=== PATIENT | female | born 1995 | race Caucasian/White ===

== ENCOUNTER 2017-06-05 16:04 | Emergency (ER) | payer SELFPAY ==
[2017-06-05 16:15] VITALS: BP 114/67
[2017-06-05] MEDS ORDERED: Ondansetron 4 MG/2 ML SDV IVPUSH ONE (16:43)
[2017-06-05] MEDS ORDERED: Ketorolac 30 MG/ML SDV IVPUSH ONE (16:43)
[2017-06-05] MEDS ORDERED: Sodium Chloride 0.9% 1,000 ML IV ONE (16:43)
[2017-06-05] MEDS ORDERED: Sodium Chloride 0.9% 10 ML Syringe FLUSH PRN (16:43)
--- NOTE | 2017-06-05 18:18 | EDM.PDOC ---
ED HPI GENERAL MEDICAL PROBLEM - General Chief Complaint: Respiratory Problem Stated Complaint: COLD AND SHE FANITED Time Seen by Provider: 06/05/17 16:44 Source of Information: Reports: Patient History Limitations: Reports: No Limitations - History of Present Illness INITIAL COMMENTS - FREE TEXT/NARRATIVE: 21-year-old female presents for evaluation and treatment of cold symptoms. Patient reports that she has been sick with cough and upper respiratory symptoms for the past 5 days. Current symptoms include a productive cough, ear pain and a sore throat. She also reports nasal congestion, headaches, low back pain and abdominal discomfort. Denies any fevers, vomiting or diarrhea. patient reports today she took some Mucinex. She states that when she woke up for nap she went to the kitchen. She began to feel lightheaded and dizzy. She states that she felt nauseous. She went to the bathroom and closes the door where she reports she passed out. However, she reports she was awake for the entire duration of this episode. She states she was down for only a few seconds. She is denying any chest pain or any shortness of breath. No influenza vaccine this season. Patient reports she traveled [place] recently. Lower Back Pain Score (Numeric/FACES): 2 - Related Data Allergies Allergy/AdvReac Type Severity Reaction Status Date / Time No Known Allergies Allergy Verified 06/05/17 16:15 Home Meds: Home Meds Amoxicillin 500 mg PO BID #20 tab 06/05/17 [Rx] Past Medical History - Past Health History Medical/Surgical History: Denies Medical/Surgical History Social & Family History - Tobacco Use Smoking Status *Q: Never Smoker ED ROS GENERAL - Review of Systems Review Of Systems: See Below Constitutional: Denies: Fever HEENT: Reports: Ear Pain, Throat Pain Respiratory: Reports: Cough, Sputum. Denies: Shortness of Breath Cardiovascular: Denies: Chest Pain GI/Abdominal: Reports: Nausea. Denies: Vomiting Neurological: Reports: Dizziness, Headache. Denies: Syncope ED EXAM, GENERAL - Physical Exam Exam: See Below Exam Limited By: No Limitations General Appearance: Alert, WD/WN, No Apparent Distress Eye Exam: Bilateral Eye: Normal Inspection, PERRL Ears: Normal External Exam, Normal Canal, Hearing Grossly Normal, Normal TMs Nose: Normal Inspection Throat/Mouth: Normal Inspection, Normal Lips, Normal Voice, No Airway Compromise , Other (posterior oropharyx erythema; no tonsilar swelling or exudates) Neck: Normal Inspection Respiratory/Chest: No Respiratory Distress, Lungs Clear, Normal Breath Sounds, Chest Non-Tender Cardiovascular: Normal Peripheral Pulses, Regular Rate, Rhythm, No Murmur GI/Abdominal: Soft, Non-Tender Neurological: Alert, Oriented, Normal Cognition Psychiatric: Normal Affect, Normal Mood Skin Exam: Warm, Dry, Erythema (face and neck) Course - Vital Signs Last Recorded V/S: Last Vital Signs Temp 37.2 C 06/05/17 16:12 Pulse 100 06/05/17 16:12 Resp 18 06/05/17 16:12 BP 114/67 06/05/17 16:12 Pulse Ox 97 06/05/17 16:12 Orthostatic Blood Pressure [ 111/64 Standing] Orthostatic Blood Pressure [ 111/68 Sitting] Orthostatic Blood Pressure [ 104/62 Supine] - Orders/Labs/Meds Orders: Active Orders 24 hr Category Date Time Status Orthostatic Vital Signs [RC] ASDIRECTED Care 06/05/17 16:43 Ordered Peripheral IV Care [RC] . DIRECTED Care 06/05/17 16:43 Ordered Sodium Chloride 0.9% [Saline Flush] Med 06/05/17 16:43 Ordered 10 ml FLUSH ASDIRECTED PRN Peripheral IV Insertion Adult [OM.PC] Routine Oth 06/05/17 16:43 Ordered Medication Orders Sodium Chloride (Saline Flush) 10 ml FLUSH ASDIRECTED PRN PRN Reason: Keep Vein Open Last Admin: 06/05/17 16:53 Dose: 10 ml Labs: Laboratory Tests 06/05/17 06/05/17 06/05/17 Range/Units 16:54 16:54 16:54 WBC 15.20 H (3.98-10.04) K/mm3 RBC 4.80 (3.98-5.22) M/mm3 Hgb 14.7 (11.2-15.7) gm/L Hct 44.0 (34.1-44.9) % MCV 91.7 (79.4-94.8) fl MCH 30.6 (25.6-32.2) pg MCHC 33.4 (32.2-35.5) g/dl RDW Std Deviation 39.4 (36.4-46.3) fL Plt Count 222 (182-369) K/mm3 MPV 10.6 (9.4-12.3) fl Neutrophils % (Manual) 94 H (40-60) % Band Neutrophils % 1 (0-10) % Lymphocytes % (Manual) 0 L (20-40) % Atypical Lymphs % 1 % Monocytes % (Manual) 3 (2-10) % Eosinophils % (Manual) 1 (0.7-5.8) % Basophils % (Manual) 0 L (0.1-1.2) Platelet Estimate Adequate Plt Morphology Comment Normal RBC Morph Comment Normal Sodium 140 (136-145) mEq/L Potassium 3.7 (3.5-5.1) mEq/L Chloride 104 (98-107) mEq/L Carbon Dioxide 27 (21-32) mEq/L Anion Gap 12.7 (5-15) BUN 10 (7-18) mg/dL Creatinine 0.8 (0.55-1.02) mg/dL Est Cr Clr Drug Dosing 90.47 mL/min Estimated GFR (MDRD) > 60 (>60) mL/min BUN/Creatinine Ratio 12.5 L (14-18) Glucose 98 (74-106) mg/dL Calcium 9.0 (8.5-10.1) mg/dL Total Bilirubin 0.8 (0.2-1.0) mg/dL AST 15 (15-37) U/L ALT 23 (14-59) U/L Alkaline Phosphatase 57 (46-116) U/L C-Reactive Protein 7.6 H* (<1.0) mg/dL Total Protein 7.7 (6.4-8.2) g/dl Albumin 4.0 (3.4-5.0) g/dl Globulin 3.7 gm/dL Albumin/Globulin Ratio 1.1 (1-2) HCG, Qual Negative (NEGATIVE) Meds: Medications Generic Name Dose Route Start Last Admin Trade Name Freq PRN Reason Stop Dose Admin Sodium Chloride 10 ml 06/05/17 16:43 06/05/17 16:53 Saline Flush FLUSH 10 ml ASDIRECTED PRN Administration Keep Vein Open Discontinued Medications Generic Name Dose Route Start Last Admin Trade Name Freq PRN Reason Stop Dose Admin Sodium Chloride 1,000 mls @ 999 mls/hr 06/05/17 16:43 06/05/17 16:55 Normal Saline IV 06/05/17 17:43 999 mls/hr ONETIME ONE Administration Ketorolac Tromethamine 30 mg 06/05/17 16:43 06/05/17 16:55 Toradol IVPUSH 06/05/17 16:44 30 mg ONETIME ONE Administration Ondansetron HCl 4 mg 06/05/17 16:43 06/05/17 16:53 Zofran IVPUSH 06/05/17 16:44 4 mg ONETIME ONE Administration - Re-Assessments/Exams Free Text/Narrative Re-Assessment/Exam: 06/05/17 18:11 Rapid strep returned positive Influenza returned negative. discussed the lab results with the patient. I offered an IM injection of penicillin versus amoxicillin. She would like to take a ten-day course of amoxicillin. Encouraged her to drink plenty of fluids and Rest. Follow-up with family medicine if not much better. Departure - Departure Time of Disposition: 18:18 Disposition: Home, Self-Care 01 Condition: Fair Clinical Impression: Strep pharyngitis - Discharge Information Prescriptions: Amoxicillin 500 mg PO BID #20 tab Instructions: Strep Throat Referrals: PCP,None [Primary Care Provider] - Tenisha Smallwood PA-C [Physician Super[facility]] - Forms: ED Department Discharge Additional Instructions: Amoxicillin 1 tab twice a day for 10 days. Make sure you take the entire course of this amoxicillin. you are contagious until you have 24 hours of antibiotic in you. Strep spread by saliva. wash any cups laying around, get a new toothbrush, etc. [id number] Tylenol or Motrin as needed for headaches and fever relief. make sure you are drinking plenty of fluids. Follow-up with your primary care provider within 2 weeks if your symptoms have not improved. Please return to the ER if your symptoms change or worsen. - My Orders Last 24 Hours: My Active Orders 06/05/17 16:43 Orthostatic Vital Signs [RC] ASDIRECTED Peripheral IV Care [RC] . DIRECTED Sodium Chloride 0.9% [Saline Flush] 10 ml FLUSH ASDIRECTED PRN Peripheral IV Insertion Adult [OM.PC] Routine - Assessment/Plan Last 24 Hours: My Active Orders 06/05/17 16:43 Orthostatic Vital Signs [RC] ASDIRECTED Peripheral IV Care [RC] . DIRECTED Sodium Chloride 0.9% [Saline Flush] 10 ml FLUSH ASDIRECTED PRN Peripheral IV Insertion Adult [OM.PC] Routine
== END 2017-06-05 18:29 | disposition home or self-care (01) ==
LOC: MERGE 16:04 → JD.ED 16:04
DX: J02.0 Streptococcal pharyngitis (principal)
CPT/HCPCS: 36415; 80053; 84703; 85025; 86140; 87430; 87804; 96361; 96374; 96375; 99284; J1885; J2405; J7040; J7050; 99283

== ENCOUNTER 2017-10-11 08:51 | Emergency (ER) | payer SELFPAY ==
--- NOTE | 2017-10-11 09:28 | EDM.PDOC ---
ED HPI GENERAL MEDICAL PROBLEM - General Chief Complaint: FURNACE FEEDER Problem Stated Complaint: 5 WKS PG - BLEEDING Time Seen by Provider: 10/11/17 09:15 Source of Information: Reports: Patient, RN Notes Reviewed - History of Present Illness INITIAL COMMENTS - FREE TEXT/NARRATIVE: 21-year-old female 2 para 0 believes that she is about 5 weeks . She has had Several positive home tests. She's had some mild intermittent spotting for about the past week or so. She's had occasional lower pain and mild cramping but none so far this morning. She did have some blood on the tissue again this morning when she wiped a few hours ago. No current bleeding or spotting at this time. No chest pain or difficulty breathing. No shoulder pain. Lower Abdominal Pain Score (Numeric/FACES): 4 - Related Data Allergies Allergy/AdvReac Type Severity Reaction Status Date / Time No Known Allergies Allergy Verified 10/11/17 08:59 Home Meds: Home Meds Pnv No.95/Ferrous Fum/Folic AC [ Multivitamin Tablet] 1 tab PO DAILY 12/21 [History] Past Medical History - Past Health History Medical/Surgical History: Denies Medical/Surgical History HEENT History: Reports: None Cardiovascular History: Reports: None Respiratory History: Reports: None Gastrointestinal History: Reports: None Genitourinary History: Reports: None FURNACE FEEDER History: Reports: Spontaneous Other OB/BYN History: Jun 2016. Musculoskeletal History: Reports: None Neurological History: Reports: None Psychiatric History: Reports: None Endocrine/Metabolic History: Reports: None Hematologic History: Reports: None Immunologic History: Reports: None Oncologic (Cancer) History: Reports: None Dermatologic History: Reports: None - Infectious Disease History Infectious Disease History: Reports: Chicken Pox - Past Surgical History Head Surgeries/Procedures: Reports: None HEENT Surgical History: Reports: None Cardiovascular Surgical History: Reports: None Respiratory Surgical History: Reports: None GI Surgical History: Reports: None Female Surgical History: Reports: None Social & Family History - Family History Family Medical History: Noncontributory HEENT: Reports: None Cardiac: Reports: None Neurological: Reports: None Psychiatric: Reports: None - Tobacco Use Smoking Status *Q: Never Smoker Second Hand Smoke Exposure: No - Caffeine Use Caffeine Use: Reports: None - Recreational Drug Use Recreational Drug Use: No ED ROS GENERAL - Review of Systems Review Of Systems: See Below Constitutional: Reports: No Symptoms HEENT: Reports: No Symptoms Respiratory: Denies: Shortness of Breath, Pleuritic Chest Pain Cardiovascular: Denies: Chest Pain GI/Abdominal: Denies: Abdominal Pain, Nausea, Vomiting : Reports: Other (Spotting, none at the present time) Musculoskeletal: Denies: Back Pain Skin: Reports: No Symptoms Neurological: Reports: No Symptoms ED EXAM - Physical Exam Exam: See Below General Appearance: Alert, No Apparent Distress Eye Exam: Bilateral Eye: PERRL Head: Atraumatic Neck: Supple, Full Range of Motion Respiratory/Chest: No Respiratory Distress, Lungs Clear, Normal Breath Sounds Cardiovascular: Regular Rate, Rhythm GI/Abdominal Exam: Soft, Non-Tender. No: Guarding Neurological: Alert, No Motor/Sensory Deficits Skin Exam: Warm, Dry, Normal Color Course - Vital Signs Last Recorded V/S: Last Vital Signs Temp 98.4 F 10/11/17 09:00 Pulse 80 10/11/17 09:00 Resp 16 10/11/17 09:00 BP 105/64 10/11/17 09:00 Pulse Ox 100 10/11/17 09:00 - Orders/Labs/Meds Labs: Laboratory Tests 10/11/17 10/11/17 10/11/17 Range/Units 09:40 09:40 10:10 Progesterone 6.47 ng/mL HCG, Qual Positive H (NEGATIVE) HCG, Quant 3851.0 mIU/mL - Re-Assessments/Exams Free Text/Narrative Re-Assessment/Exam: 10/11/17 12:11 Your quantitative hCG today is 3,851. Your progesterone level today 6.47. Follow-up with an OB cardiovascular rn as soon as you get to [place], first available appointment. Return to ED as needed. Departure - Departure Time of Disposition: 12:12 Disposition: Home, Self-Care 01 Condition: Fair Clinical Impression: First trimester - Discharge Information Instructions: First Trimester of Referrals: PCP,None [Primary Care Provider] - Forms: ED Department Discharge
[2017-10-11 16:06] VITALS: BP 110/63
== END 2017-10-11 12:37 | disposition home or self-care (01) ==
LOC: JD.ED 08:51
DX: O99.89 Other specified diseases and conditions complicating pregnancy, childbirth and the puerperium (principal); R10.30 Lower abdominal pain, unspecified; Z3A.01 Less than 8 weeks gestation of pregnancy
CPT/HCPCS: 36415; 84144; 84702; 84703; 99283; 99284